=== PATIENT | male | born 1990 | race Hispanic/Latino ===

== ENCOUNTER 2024-10-14 16:29 | Emergency (ER) | payer OTHER ==
[~2024-10-14] VITALS: Ht 180.3 cm; Wt 77.0 kg
[2024-10-14] MEDS ORDERED: Diph, Acellular Pertussis, Tet 0.5 ML/VIAL (Tdap) SDV IM ONE (16:40)
[2024-10-14 16:56] LABS: BASO% 0.7 % (0-3); EOS% 0.3 % (0-8); IMMATURE GRANULOCYTES 0.1 % (0.0-5.0); LYMPH% 25.6 % (15-41); MEAN CELL VOLUME 91.9 fL CALC (80.0-100.0); MEAN CORPUSCULAR HGB 29.9 pG CALC (26.0-32.0); MEAN CORPUSCULAR HGB CONC 32.6 g/dL CAL (32.0-36.0); MONO% 6.8 % (2-13); NEUT# 5.12 thou/uL (1.82-7.42); NEUT% 66.5 % (42-76); RED BLOOD COUNT 4.68 mill/uL (4.70-6.10); RED CELL DISTRI WIDTH 12.2 % (11.5-15.5)
[2024-10-14 17:18] LABS: ALBUMIN 4.8 g/dL (3.2-5.0); ALKALINE PHOSPHATASE 34 u/l (38-126); ANION GAP 15 (6-22 (CALC)); BILIRUBIN, TOTAL 0.7 mg/dL (0.2-1.3); BUN 13 mg/dL (9-20); BUN/CREATININE RATIO 14 (12-20 (CALC)); CARBON DIOXIDE 26 mmol/l (22-30); CHLORIDE 107 mmol/l (95-108); ESTIMATED GFR 100 ML/MIN (>=90 (CALC)); POTASSIUM 3.7 mmol/l (3.5-5.1); SGOT/AST 42 u/l (17-59); SODIUM 145 mmol/l (137-146); TOTAL PROTEIN 7.3 g/dL (6.3-8.2)
[2024-10-14] MEDS ORDERED: SILVADENE1 % EX (17:42)
[2024-10-14] MEDS ORDERED: EC-NAPROXEN500 MG PO (17:42)
[2024-10-14 17:44] VITALS: BP 107/55
[2024-10-14] MEDS ORDERED: TRAMADOL HYDROC50 M1 PO (17:46)
== END 2024-10-14 18:14 | disposition home or self-care (01) | DRG 206 ==
LOC: ED 16:29
PROVIDERS: Family Medicine
DX: S27.321A Contusion of lung, unilateral, initial encounter (principal); S43.101A Unspecified dislocation of right acromioclavicular joint, initial encounter; S20.411A Abrasion of right back wall of thorax, initial encounter; V86.55XA Driver of 3- or 4- wheeled all-terrain vehicle (ATV) injured in nontraffic accident, initial encounter
CPT/HCPCS: 90715; Q9967